=== PATIENT | male | born 2000 | race Caucasian/White ===

== ENCOUNTER 2022-11-05 10:31 | Emergency (ER) | payer OTHER, SELFPAY ==
[2022-11-05 10:40] VITALS: BP 116/73; PULSE 85; RESP 18; TEMP 36.8; O2SAT 97; BMI 22.7
--- NOTE | 2022-11-05 11:41 | ED.GENADULT ---
HPI - General Adult General Time Seen by Provider: 11:41 Date Seen: 11/05/22 Chief complaint: Ear/Nose/Throat Problem Stated complaint: Nose bleed 3 days Time Seen by Provider: 11/05/22 11:30 Source: patient Mode of arrival: ambulatory Limitations: no limitations History of Present Illness HPI narrative: Patient is a 22 year white male has had a bloody nose on and off for a couple of days. He has no other history of this, no bleeding diathesis. No trauma or injury. Related Data Home Medications Medication Instructions Recorded Confirmed No Known Home Medications 11/05/22 11/05/22 Allergies Allergy/AdvReac Type Severity Reaction Status Date / Time No Known Drug Allergies Allergy Verified 11/05/22 10:44 Review of Systems Status of ROS: Reports: 6 or more systems reviewed and unremarkable except as noted in History and below PFSH PFS Social History Smoking Status: Never smoker Do you use any of these nicotine containing products: None Second hand tobacco smoke exposure: No How often do you have a drink containing alcohol: never AUDIT-C Alcohol total score: 0 Non-prescribed substance use: denies use Exam Narrative: Exam Narrative: Objective: Very much friability the right nasal septum, left nasal septum and nose clear Procedure after stay in from informed consent the patient had silver nitrate applied x2 to the right nasal septum, good cautery noted, no further bleeding. Const: Vital Signs, click to edit/add: Vital Signs - 24 hr 11/05/22 10:40 Temperature 98.3 F Pulse Rate [Right Pulse Oximeter] 85 Respiratory Rate 18 Blood Pressure [Ri ght Upper Arm] 116/73 Pulse Oximetry 97 Oxygen Delivery Me thod Room Air Course Vital Signs Vital signs: Initial Vital Signs Temperature 98.3 F 11/05/22 10:40 Temperature Source Temporal Artery Scan 11/05/22 10:40 Pulse Rate 85 11/05/22 10:40 Pulse Rhythm Regular 11/05/22 10:40 Respiratory Rate 18 11/05/22 10:40 Blood Pressure 116/73 11/05/22 10:40 Blood Pressure Mean 87 11/05/22 10:40 Blood Pressure Position Sitting 11/05/22 10:40 Pulse Oximetry 97 11/05/22 10:40 Oxygen Delivery Method Room Air 11/05/22 10:40 Vital Signs Temperature 98.3 F 11/05/22 10:40 Pulse Rate 85 11/05/22 10:40 Respiratory Rate 18 11/05/22 10:40 Blood Pressure 116/73 11/05/22 10:40 Pulse Oximetry 97 11/05/22 10:40 Oxygen Delivery Method Room Air 11/05/22 10:40 Temperature 98.3 F 11/05/22 10:40 Pulse Rate 85 11/05/22 10:40 Respiratory Rate 18 11/05/22 10:40 Blood Pressure 116/73 11/05/22 10:40 Pulse Oximetry 97 11/05/22 10:40 Oxygen Delivery Method Room Air 11/05/22 10:40 Medical Decision Making MDM Narrative Medical decision making narrative: Patient has had a right sided septal bleed from his nose for the last couple of days intermittent. He has some small punctate bleeding areas. Silver nitrate applied. Discussed follow-up treatment including no nasal trauma, no blowing the nose, bacitracin or Neosporin to the nose couple times a day just gently inside the nares bilaterally. Recheck as needed. Light activity for a couple of days. Discharge Plan Discharge Clinical Impression: Epistaxis Condition: Improved Additional Instructions: Please avoid trauma to her nose, no blowing or picking the nose. Recommend bacitracin or Neosporin topically to the inside of both nostrils twice a day for the next week. Return if problems or concerns. Activity Level: Light activity Discharge Diet: Regular Prescriptions: No Action No Known Home Medications Follow Up/Referrals: Miriam Sullivan MD [Staff Physician] - Stand Alone Forms: [employer] Info Instructions
== END 2022-11-05 11:53 | disposition home or self-care (01) ==
PROVIDERS: Emergency Provider Family Medicine
DX: R04.0 Epistaxis (principal)
CPT/HCPCS: 30901; 99283; 99284